=== PATIENT | male | born 1990 | race Hispanic/Latino ===

== ENCOUNTER 2016-10-31 15:24 | Emergency (ER) | payer SELFPAY ==
[2016-10-31 15:43] VITALS: TEMP 98.2
[2016-10-31] MEDS ORDERED: Albuterol-Ipratrop 3 mg / 0.5 (3 ml) UD INH STA (16:10)
--- NOTE | 2016-10-31 16:26 | RAD ---
HISTORY: SOB COMPARISON: None available. TECHNIQUE: Chest PA and lateral FINDINGS: Examination limited by habitus. LUNGS: The patient's chin obscures evaluation of the lung apices. Mild central vascular prominence. No focal consolidation. PLEURA: No significant pleural effusion identified. No definite pneumothorax . CARDIOVASCULAR: The cardiomediastinal silhouette appears within normal limits of size. OSSEOUS STRUCTURES: Degenerative changes of the spine. VISUALIZED UPPER ABDOMEN: Elevation of the right hemidiaphragm. OTHER FINDINGS: None. IMPRESSION: Mild central vascular prominence.
[2016-10-31 16:41] LABS: BASO # 0.1 K/uL (0.0-0.2); BASO % 0.8 % (0.0-2.0); EOS # 0.4 K/uL (0.0-0.7); EOS % 3.2 % (0.0-4.0); HEMATOCRIT 44.5 % (35.0-51.0); LYMPH # 2.7 K/uL (1.0-4.3); LYMPH % 21.3 % (20.0-40.0); MEAN CORPUSCULAR HEMOGLOBIN 28.2 pg (27.0-31.0); MEAN CORPUSCULAR HGB CONC 33.5 g/dL (33.0-37.0); MEAN PLATELET VOLUME 8.9 fL (7.2-11.7); MONO # 0.8 K/uL (0.0-0.8); MONO % 5.9 % (0.0-10.0); RED CELL DISTRIBUTION WIDTH 17.3 % (11.5-14.5); WHITE BLOOD COUNT 12.8 K/uL (4.8-10.8)
[2016-10-31] MEDS ORDERED: Albuterol-Ipratrop 3 mg / 0.5 (3 ml) UD ONE (16:44)
[2016-10-31 16:49] LABS: CHLORIDE 100 mmol/L (98-107); POTASSIUM 4.5 mmol/L (3.6-5.2); SODIUM 140 mmol/L (132-148)
[2016-10-31 16:51] LABS: GFR AFRICAN-AMERICAN > 60
[2016-10-31 16:52] LABS: ALB/GLOB RATIO 1.2 (1.0-2.1); ALKALINE PHOSPHATASE 97 U/L (38-126); ALT/SGPT 50 U/L (21-72); AST/SGOT 24 U/L (17-59); BILIRUBIN,TOTAL 0.5 mg/dL (0.2-1.3); BLOOD UREA NITROGEN 15 mg/dL (9-20); CARBON DIOXIDE 30 mmol/L (22-30); GLUCOSE,RANDOM 82 mg/dL (75-110); TOTAL PROTEIN 7.2 g/dL (6.3-8.3)
[2016-10-31 16:53] LABS: CALCIUM 9.1 mg/dl (8.6-10.4)
[2016-10-31 17:00] LABS: ABG ALLEN TEST POS; DRAW SITE RRA
--- NOTE | 2016-10-31 17:27 | C.PDOC ---
History Of Present Illness 25 yr old male presents to the ER with complaints of SOB. Patient has multiple prior evaluation for SOB and asthma. Patient reports she smokes marijuana daily. Patient denies history of DVT. Also denies fever, chills, chest pain, nausea, vomiting, abdominal pain, weakness or numbness. trialed on "all" CPAP/BiPAP aparatus, cannot tolerate. Feels it conflicts with his "constant" marijuana/vaping regimen which is his self-treatment for PTSD, BiPolar, anxiety, depression Estimated weight 450# Time Seen by Provider: 10/31/16 15:47 Chief Complaint (Nursing): Chest Pain History Per: Patient History/Exam Limitations: no limitations Onset/Duration Of Symptoms: Days Past Medical History Reviewed: Historical Data, Nursing Documentation, Vital Signs Vital Signs: Last Vital Signs Temp 98.2 F 10/31/16 15:42 Pulse 95 H 10/31/16 18:00 Resp 26 H 10/31/16 18:00 BP 131/64 10/31/16 18:00 Pulse Ox 90 L 10/31/16 18:50 - Medical History PMH: Anxiety, Asthma, Bipolar Disorder, Depression Surgical History: Tonsillectomy Family History: States: No Known Family Hx - Social History Hx Alcohol Use: No Hx Substance Use: No Review Of Systems Except As Marked, All Systems Reviewed And Found Negative. Constitutional: Negative for: Fever, Chills Cardiovascular: Negative for: Chest Pain Respiratory: Positive for: Shortness of Breath Gastrointestinal: Negative for: Nausea, Vomiting, Abdominal Pain Neurological: Negative for: Weakness, Numbness Physical Exam - Physical Exam Appears: Non-toxic, No Acute Distress, Other ((+) Morbidly obese. Anxious, with pressured speech. ) Skin: Warm, Dry, No Rash Head: Atraumatic, Normacephalic Oral Mucosa: Moist Neck: Normal, Normal ROM, Supple Chest: Symmetrical, No Tenderness Cardiovascular: Rhythm Regular, No Murmur Respiratory: Rhonchi (Scattered), Wheezing (Scattered), Other (Peak flow, 250.) Gastrointestinal/Abdominal: Normal Exam, Soft, No Tenderness, No Guarding, No Rebound Extremity: Other (Lower extremities, obease, without edema. ) Neurological/Psych: Oriented x3, Normal Speech, Normal Motor ED Course And Treatment - Laboratory Results Result Diagrams: 10/31/16 16:38 10/31/16 16:38 Lab Interpretation: Normal (mild leukocytosis, d-dimer neg.) ECG: Interpreted By Me ECG Rhythm: Sinus Rhythm ECG Interpretation: Normal Rate From EC O2 Sat by Pulse Oximetry: 90 (RA) Pulse Ox Interpretation: Abnormal - Radiology CXR: Interpreted by Me CXR Interpretation: Yes: No Acute Disease Progress Note: Patient states he does not believe in medicine use, however is requesting ativan IV. Patient has history of multiple evaluations and leaves AMA. 1900: pt agitated, arguing with pt's in Bed 14 (pt in bed 13) in loud voice for over 1/2 hour, creaming racial epitaphs @ black female nursing staff, demands to leave hospital immediatly but wants to be evaluated by this MD. Pt' s IV d/c'd by pt and pt left ED escorted by Security walking in a strong stable gait, yelling loudly in to his telephone, across the parking lot and to the street with NAD and no SOB. Considering pt's extensive prior involvement with law infocement in [place], huge body habitus, and erratic behavior and non- compliance pt should be considered dangerous and approached very cautiously. Consider secondary gains as pt presented to ED c/o SOB but never demonstrated this and labs and ABG are chronically compensated. As pt refused to give UA/U- tox and has h/o abusing crystal meth his behavior suggests his persistent use is highly likely. Reevaluation Time: 18:24 Reassessment Condition: Improved (calm, cooperative, bizarre) - Physician Consult Information Outcome Of Conversation: 1825: d/w Hospitalist- Dr. Gloria Grey- ok to Tele Obs. Medical Decision Making Medical Decision Making: PLAN: * CXR * EKG * ABG * D-Dimer * Drug Screen * CBC * CMP * Urinalysis * Albuterol INH * Ativan PO elevated C02 on ABG is compensated and ? underlying Restrictive pulm dz due to body habitus (450#) and/or persistent vaping/marijuana smoking for self- medication for underlying psych issues. Intolerant of CPAP/BiPap Though body habitus would cause suspicion, neg D-Dimer and compensated ABG argues against DVT/PE/Pneumonia Disposition Doctor Will See Patient In The: Hospital Counseled Patient/Family Regarding: Studies Performed, Diagnosis - Disposition Disposition: ELOPEMENT - ER ONLY Disposition Time: 19:30 Condition: GOOD Forms: [facility] (Congolese) - Clinical Impression Clinical Impression: Asthma exacerbation, Hypercarbia, Hypoxia, Behavior concern in adult - Scribe Statement The provider has reviewed the documentation as recorded by the Ethelibjen Salinas Provider Attestation: All medical record entries made by the Ethelibjen were at my direction and personally dictated by me. I have reviewed the chart and agree that the record accurately reflects my personal performance of the history, physical exam, medical decision making, and the department course for this patient. I have also personally directed, reviewed, and agree with the discharge instructions and disposition.
[2016-10-31 18:01] VITALS: BP 131/64; PULSE 95; RESP 26
[2016-10-31 18:24] VITALS: O2SAT 90
--- NOTE | 2016-11-03 13:07 | CARD ---
APPROVED REPORT EKG Measurement Heart [id number] <Conclusion> Normal sinus rhythm Nonspecific T wave abnormality Abnormal ECG
== END 2016-10-31 19:30 | disposition left against medical advice (07) ==
LOC: C.ER 15:24
DX: J45.901 Unspecified asthma with (acute) exacerbation (principal); R09.02 Hypoxemia; R06.89 Other abnormalities of breathing; F69 Unspecified disorder of adult personality and behavior
CPT/HCPCS: 71020; 80053; 82803; 83880; 84484; 85025; 85378; 94640; 96374; 99283; J2930